=== PATIENT | female | born 1965 ===

== ENCOUNTER 2024-10-24 13:32 | Outpatient (CLI) | payer OTHER | END 2024-10-24 13:50 | disposition home or self-care (01) | LOC: RAD 13:32 | PROVIDERS: ATTEND Surgery | DX: C50.011 Malignant neoplasm of nipple and areola, right female breast (principal) ==

== ENCOUNTER 2024-10-31 07:24 | Day surgery (SDC) | payer OTHER ==
[2024-10-29 13:38] VITALS: BP 135/82
[~2024-10-31] VITALS: Ht 157.5 cm; Wt 74.8 kg
[~2024-10-31 07:24] MED LIST: ANASTROZOLE1 MG PO; LIPITOR40 MG PO
[2024-10-31] MEDS ORDERED: CEFAZOLIN SODIUM 1,000 MG VIAL ONE (11:03)
[2024-10-31] MEDS ORDERED: BUPIVACAINE HCL/Mpf 0.5% 10ML VIAL ONE (12:28)
[2024-10-31] MEDS ORDERED: LIDOCAINE HCL 1%/EPINEPHRINE 20ML VIAL IJ ONE (12:28)
[2024-10-31] MEDS ORDERED: HEPARIN SODIUM,PORCINE 5,000 UNITS/ML VIAL ONE ×2 (13:10→13:16)
[2024-10-31] MEDS ORDERED: TRAM1TAB98 PO (14:16)
== END 2024-10-31 15:45 | disposition home or self-care (01) ==
LOC: CIR.AMB 07:24
PROVIDERS: ATTEND Surgery
DX: C50.011 Malignant neoplasm of nipple and areola, right female breast (principal); E78.5 Hyperlipidemia, unspecified
CPT/HCPCS: 36561; C1751

== ENCOUNTER 2025-06-05 09:00 | Day surgery (SDC) | payer OTHER ==
[2025-06-04 12:24] VITALS: BP 115/72
[~2025-06-05] VITALS: Ht 157.5 cm; Wt 62.6 kg
[~2025-06-05 09:00] MED LIST changes: +CARVEDILOL3.125 MG; +HORIZANT300 MG PO; +LASIX20 MG PO; +OMEPRAZOLE20 MG PO; +TRAM1TAB98 PO
[2025-06-05] MEDS ORDERED: CEFAZOLIN SODIUM 1,000 MG VIAL ONE (10:09)
[2025-06-05] MEDS ORDERED: CHLORHEXIDINE GLUCONATE 120 ML BOTTLE TOP ONE (11:32)
[2025-06-05] MEDS ORDERED: BUPIVACAINE HCL/MPF 0.5% 30ML VIAL ONE (11:32)
[2025-06-05] MEDS ORDERED: POVIDONE-IODINE 118 ML BOTT TOP ONE (11:33)
[2025-06-05] MEDS ORDERED: LIDOCAINE HCL 1%/EPINEPHRINE 20ML VIAL IJ ONE (11:33)
[2025-06-05] MEDS ORDERED: MORPHINE SULFATE 2 MG/ML CARTRIDGE IV ONE (15:00)
== END 2025-06-05 16:45 | disposition home or self-care (01) ==
LOC: CIR.AMB 09:00
PROVIDERS: ATTEND Surgery
DX: C50.011 Malignant neoplasm of nipple and areola, right female breast (principal); R59.0 Localized enlarged lymph nodes